=== PATIENT | male | born 1940 | race Caucasian/White ===

== ENCOUNTER → 2021-09-05 | Day surgery (SDC) | payer MEDICARE, BC ==
[~2021-09-05] MED LIST: Lactated Ringers 1,000 ML IV SCH; Lidocaine 4% 5 ML Amp ONE; Midazolam 1 MG/ML 2 ML SDV ONE; Propofol 200 MG/20 ML SDV ONE; fentaNYL 100 MCG/2 ML SDV ONE
[2021-09-05 09:37] VITALS: PULSE 66
[2021-09-05 10:07] VITALS: BP 179/79
== END ==
LOC: VM.SDS 06:59
PROVIDERS: ATTEND Family Medicine
DX: K92.1 Melena (principal); K22.70 Barrett's esophagus without dysplasia; K21.9 Gastro-esophageal reflux disease without esophagitis; K44.9 Diaphragmatic hernia without obstruction or gangrene; K29.90 Gastroduodenitis, unspecified, without bleeding; K57.10 Diverticulosis of small intestine without perforation or abscess without bleeding; K57.30 Diverticulosis of large intestine without perforation or abscess without bleeding; I10 Essential (primary) hypertension; M54.16 Radiculopathy, lumbar region; G62.9 Polyneuropathy, unspecified; I65.23 Occlusion and stenosis of bilateral carotid arteries; Z90.49 Acquired absence of other specified parts of digestive tract; Z98.890 Other specified postprocedural states; Z79.899 Other long term (current) drug therapy; Z88.8 Allergy status to other drugs, medicaments and biological substances; Z87.891 Personal history of nicotine dependence
CPT/HCPCS: 00812; 88305; J2250; J2704; J3010; J7120